=== PATIENT | male | born 1970 | race Caucasian/White ===

== ENCOUNTER 2016-06-30 06:17 | Inpatient (IN) | payer BC ==
[2016-06-22 12:24] VITALS: BMI 29.7
[~2016-06-30 06:17] MED LIST: DEXAMETHASONE SOD PHOSPHATE 10 MG/ML 1 ML VIAL IV ONE; HEPARIN SODIUM,PORCINE 5,000 UNIT/ML 1 ML VIAL SQ ONE; LACTATED RINGERS 1,000 ML IV SCH; LIDOCAINE 1% 20 ML VIAL (10MG/ML) FOR IV START INTRADERMA PRN; MIDAZOLAM 2 MG/2 ML VIAL IV PRN; ONDANSETRON 4 MG/2 ML VIAL IVP ONE; SCOPOLAMINE 1.5MG/72HR PATCH TRANSDERM ONE; ceFAZolin 2 GM in SODIUM CHLORIDE 0.9% 100 ML IVPB ONE
[2016-06-30 06:55] VITALS: RESP 16
[2016-06-30] MEDS ORDERED: LIDOCAINE 1% 20 ML VIAL (10MG/ML) FOR IV START INTRADERMA ONE (06:55)
[2016-06-30] MEDS ORDERED: fentaNYL (PF) 50 MCG/ML 2 ML AMP IV ONE (07:20)
--- NOTE | 2016-06-30 07:44 | P.GSHP ---
History of Present Illness H&P Date: 06/30/16 Chief Complaint: GERD, right upper quadrant pain This a 45-year-old male who presents today for laparoscopic Alex fundoplication and laparoscopic cholecystectomy. Patient has a recent HIDA scan which was abnormal ejection fraction consistent with biliary dyskinesia and chronic cholecystitis.The patient has had long-standing problems with reflux esophagitis. The patient underwent recent EGD is found have evidence of esophagitis. Patient has been well informed on the procedure of laparoscopic Alex fundoplication. The patient is aware the risk of the conversion to the open procedure, risk of injury to the stomach, liver and spleen. The patient is also a risk of recurrent GERD and dysphagia symptoms. The patient understands there is a postoperative diet of full liquids for 2 weeks after surgery. - Constitutional Constitutional: Reports as per HPI Past Medical History Past Medical History: GI Bleed Additional Past Medical History / Comment(s): HIATAL HERNIA History of Any Multi-Drug Resistant Organisms: None Reported Past Surgical History: Orthopedic Surgery Additional Past Surgical History / Comment(s): EGD-06/08/16. COLONOSCOPY. NOSE SX. REPAIR FX FINGERS Past Anesthesia/Blood Transfusion Reactions: Motion Sickness Past Psychological History: No Psychological Hx Reported Smoking Status: Never smoker Past Alcohol Use History: None Reported Past Drug Use History: None Reported - Past Family History Mother Family Medical History: No Reported History Medications and Allergies Home Medications Medication Instructions Recorded Confirmed Type Omeprazole 40 mg PO DAILY 06/06/16 06/30/16 History Ranitidine HCl [Zantac] 150 mg PO HS 06/30/16 06/30/16 History Allergies Allergy/AdvReac Type Severity Reaction Status Date / Time Penicillins AdvReac Rash/Hives Verified 06/22/16 12:20 Surgical - Exam Vital Signs Temp Pulse Resp BP Pulse Ox 98.1 F 62 16 151/91 98 06/30/16 06:40 06/30/16 06:40 06/30/16 06:40 06/30/16 06:40 06/30/16 06:40 - General well developed, no distress - Eyes PERRL - ENT normal pinna - Neck no masses - Respiratory normal expansion - Cardiovascular Rhythm: regular - Abdomen Mild right upper quadrant tenderness Abdomen: soft Assessment and Plan Plan: GERD. We'll perform laparoscopic Alex fundoplication. Chronic cholecystitis. We'll perform laparoscopic cholecystectomy
[2016-06-30] MEDS ORDERED: ROCURONIUM BROMIDE 10 MG/ML 10 ML VIAL IV ONE (07:49)
[2016-06-30] MEDS ORDERED: MIDAZOLAM 2 MG/2 ML VIAL ONE (07:49)
[2016-06-30] MEDS ORDERED: HYDROmorphone (PF) 1 MG/ML ONE (07:49)
[2016-06-30] MEDS ORDERED: LIDOCAINE 1% INJ 10MG/ML (20 ML MDV) ONE (07:49)
[2016-06-30] MEDS ORDERED: PROPOFOL 10 MG/ML 20 ML VIAL IV ONE (07:49)
[2016-06-30] MEDS ORDERED: NEOSTIGMINE 1 MG/ML 10 ML VIAL ONE (07:49)
[2016-06-30] MEDS ORDERED: fentaNYL (PF) 50 MCG/ML 2 ML AMP ONE (07:49)
[2016-06-30] MEDS ORDERED: SUCCINYLCHOLINE CHLORIDE VIAL 200 MG/10 ML VIAL IV ONE (07:49)
[2016-06-30] MEDS ORDERED: GLYCOPYRROLATE 0.2 MG/ML 2 ML VIAL ONE (07:49)
[2016-06-30] MEDS ORDERED: BUPIVACAIN-EPI 0.25%-1:200,000 30 ML VIAL SQ ONE (08:19)
[2016-06-30] MEDS ORDERED: LACTATED RINGERS 1,000 ML IV ONE ×2 (08:33→09:22)
[2016-06-30] MEDS ORDERED: ONDANSETRON 4 MG/2 ML VIAL IVP PRN (09:22)
[2016-06-30] MEDS ORDERED: NALOXONE 0.4 MG/ML 1 ML VIAL IV PRN (09:22)
[2016-06-30] MEDS ORDERED: KETOROLAC 30 MG/ML 1 ML VIAL IVP ONE ×2 (09:28)
--- NOTE | 2016-06-30 09:30 | P.OP ---
Date of Procedure: 06/30/16 Preoperative Diagnosis: Gerd Chronic cholecystitis Postoperative Diagnosis: GERD Chronic cholecystitis Procedure(s) Performed: Laparoscopic Alex fundoplication Laparoscopic cholecystectomy Anesthesia: LUIS Surgeon: Renato Marcos Estimated Blood Loss (ml): 5 Pathology: none sent (Gallbladder) Condition: stable Disposition: PACU Description of Procedure: The was placed on the operating table in the supine position. The patient received general anesthesia. And was placed in dorsal lithotomy position. The patient was prepped and draped in the usual sterile fashion. The skin incision sites were anesthetized with 1% local Xylocaine. The skin was incised in the left periumbilical area and then using a blade less 5 mm trocar under direct visualization panel cavity was entered. After adequate insufflation the laparoscope was then placed into the peritoneal cavity. Next a 5 mm trochars placed in the right epigastric position. Another 5 millimeter trocar the right lateral position. Another 5 millimeter trocar in the left lateral position a 5 mm trocar is placed in the left epigastric position. And then the initial 5 mm trocar was exchanged for a 10 mm trocar. The left lateral lobe liver was retracted. The hernia was seen. The crural defect was then dissected using the Harmonic scissors device. A 360 crural dissection was performed the esophagus stomach was reduced back into the peritoneal Cavity. The crural defect was then closed using 2-0 Ethibond suture. Next the fundus of the stomach was mobilized using the [place] scissors device. and then a 58-[place] bougie dilator was placed oropharynx passed into the esophagus and stomach the fundal plication wrap was then performed by grasping the fundus posteriorly and bringing it around the esophagus and stomach fundoplication was then performed using 2-0 Ethibond suture. Care was taken that the fundal location rested over top of the intra-abdominal esophagus. There was no injury seen to the stomach or esophagus. The dilator was then withdrawn. The abdomen was irrigated there is no bleeding seen. Next, the trochars were repositioned. The 8 mm trocar was positioned in the right epigastric position and then another 5 mm trocar was added to the right periumbilical position. The gallbladder was grasped in the fundus and infundibulum. Traction on the gallbladder was placed in the lateral and the cephalad positions. The triangle of [place] was visualized.. The cystic duct was bluntly dissected until the union of the cystic duct and common bile duct was seen. The cystic duct was then divided and sealed with the Harmonic scissors. A PDS Endoloop was then placed throughout the cystic duct stump. The cystic artery divided and sealed with the Harmonic scissors. The gallbladder was then removed from the liver bed using Harmonic scissors. The gallbladder was then extracted through the epigastric port site. Operative field was checked for any bleeding spots and Harmonic scissors was used to coagulate the liver bed. The abdomen was irrigated. The trocars were removed. The skin was closed using interrupted 3- 0 Vicryl suture. Dermabond dressing were applied. The patient tolerated the procedure well.
[2016-06-30] MEDS: HYDROmorphone 1 MG/ML 1 ML SYRINGE IVP PRN ×7 (09:33→17:32)
--- NOTE | 2016-06-30 12:03 | P.CONS ---
History of Present Illness - Reason for Consult Consult date: 06/30/16 Medical management Requesting physician: Renato Marcos - Chief Complaint Status post laparoscopic Alex fundoplication and cholecystectomy - History of Present Illness This is a 45-year-old male, patient of Dr. Patel. He has a known past medical history of GERD, hiatal hernia and hemorrhoids. Patient presents to the hospital for a laparoscopic Alex for medication and cholecystectomy. Patient has had suffered issues with GERD had recent EGD with evidence of esophagitis. Also had workup completed for the gallbladder with recent HIDA scan showing a EF of 22% with a biliary dyskinesia and chronic cholecystitis. Patient tolerated surgery well there were no complications. Estimated blood loss of 5 mL's. We're consulted for medical management. Patient is complaining of some left shoulder pain which is likely gas pain from the surgery. He denies any chest pain, shortness of breath, nausea or vomiting. He has not passed gas yet. Denies any difficulty urinating. Review of Systems Please refer to HPI otherwise unremarkable Past Medical History Past Medical History: GI Bleed Additional Past Medical History / Comment(s): HIATAL HERNIA, hemorrhoids History of Any Multi-Drug Resistant Organisms: None Reported Past Surgical History: Orthopedic Surgery Additional Past Surgical History / Comment(s): EGD-06/08/16. COLONOSCOPY. NOSE SX. REPAIR FX FINGERS Past Anesthesia/Blood Transfusion Reactions: Motion Sickness Past Psychological History: No Psychological Hx Reported Smoking Status: Never smoker Past Alcohol Use History: None Reported Past Drug Use History: None Reported - Past Family History Mother Family Medical History: No Reported History Medications and Allergies Home Medications Medication Instructions Recorded Confirmed Type Omeprazole 40 mg PO DAILY 06/06/16 06/30/16 History Ranitidine HCl [Zantac] 150 mg PO HS 06/30/16 06/30/16 History Allergies Allergy/AdvReac Type Severity Reaction Status Date / Time Penicillins AdvReac Rash/Hives Verified 06/22/16 12:20 Physical Exam Vitals: Vital Signs Temp Pulse Resp BP Pulse Ox 06/30/16 11:28 69 16 06/30/16 10:00 69 16 152/86 95 06/30/16 09:45 78 16 158/92 95 06/30/16 09:30 79 16 174/80 95 06/30/16 09:19 98 F 90 16 175/89 98 06/30/16 06:40 98.1 F 62 16 151/91 98 Intake and Output 06/29/16 06/30/16 06/30/16 22:59 06:59 14:59 Intake Total 400 1300 Output Total 5 Balance 400 1295 Intake: IV 400 1300 Output: Estimated Blood Loss 5 Other: Voiding Method Toilet Urinal Head normocephalic Neck supple Lungs clear to auscultation bilaterally no wheezing or crackles Heart regular rate and rhythm S1-S2, no rub or gallop Abdomen is soft tender incision sites. Hypoactive bowel sounds. Extremities no edema Neuro alert and orientated to 3 Assessment and Plan Plan: 1. GERD and chronic cholecystitis: Patient is postop day 0 status post laparoscopic Alex fundoplication and laparoscopic cholecystectomy. Patient is scheduled for esophagram later this afternoon. Pain is tolerable. 2. History of hemorrhoids: Stable no active bleeding 3. History of biliary dyskinesia with HIDA scan showing an ejection fraction of 22% with chronic cholecystitis now status post left Cholecystectomy 4. Check CBC and CMP 5. DVT prophylaxis subcu heparin and GI prophylaxis omeprazole 6. Add incentive spirometer for pulmonary prophylaxis Thank you for this consultation. We will continue to follow along with you Time with Patient: Greater than 30 (Greater than 50% of the total time spent in counseling and coordination of care.I performed an examination of the patient and discussed their management with the physician Head Of Digital. I have reviewed the Physician Head Of Digital's notes and agree with the documented findings and plan of care)
[2016-06-30 12:16] LABS: Basophils % (A) 0 %; CH 31.4; CHCM 34.1; Eosinophils % (A) 0 %; HCT 45.5 % (39.0-53.0); HDW 2.78; HGB 15.1 gm/dL (13.0-17.5); Luc # (Auto) 0.03; Luc % (Auto) 0; Lymphocytes # (A) 0.6 k/uL (1.0-4.8); Lymphocytes % (A) 5 %; MCH 30.7 pg (25.0-35.0); MCHC 33.2 g/dL (31.0-37.0); MCV 92.5 fL (80.0-100.0); Mean Platelet Volume 6.1; Monocytes # (A) 0.1 k/uL (0-1.0); Monocytes % (A) 1 %; Neutrophils # (A) 11.3 k/uL (1.3-7.7); Neutrophils % (A) 94 %; RBC 4.91 m/uL (4.30-5.90); RDW 12.8 % (11.5-15.5); WBC 12.1 k/uL (3.8-10.6); WBC (Perox) 12.42
[2016-06-30 12:29] LABS: ALT 70 U/L (21-72); AST 43 U/L (17-59); Alkaline Phosphatase 67 U/L (38-126); Anion Gap 14 mmol/L; Blood Urea Nitrogen 14 mg/dL (9-20); Carbon Dioxide 24 mmol/L (22-30); Chloride 105 mmol/L (98-107); Glucose 117 mg/dL (74-99); Non-African American GFR(MDRD) >60 (>60 ml/min/1.73 sqM); Potassium 4.1 mmol/L (3.5-5.1); Sodium 143 mmol/L (137-145); Total Bilirubin 0.5 mg/dL (0.2-1.3); Total Protein 6.9 g/dL (6.3-8.2)
--- NOTE | 2016-06-30 13:25 | FL ---
EXAMINATION TYPE: FL UGI w esophagus DATE OF EXAM: 06/30/2016 1:11 PM COMPARISON: NONE HISTORY: Postop Niesen TECHNIQUE: A single contrast UGI study is performed. FINDINGS: Master Dyer image of the abdomen shows no gross abnormality. There is moderate delay at the level of the GE junction. Approximately one third of contrast passed i nto the stomach. No evidence of extravasation. Small amount of free intraperitoneal air noted. IMPRESSION: 1. Moderate delay at the level of the GE junction.
[2016-06-30] MEDS: HEPARIN SODIUM,PORCINE 5,000 UNIT/ML 1 ML VIAL SQ SCH (20:25)
[2016-06-30] MEDS: HYDROcodone/APAP 5-325MG 1 EACH TAB PO PRN (20:25)
[2016-07-01] MEDS: HYDROcodone/APAP 5-325MG 1 EACH TAB PO PRN ×2 (01:53→07:43)
[2016-07-01 06:48] LABS: Basophils % (A) 0 %; CH 31.5; CHCM 34.3; Eosinophils % (A) 0 %; HCT 41.3 % (39.0-53.0); HDW 2.77; HGB 13.8 gm/dL (13.0-17.5); Luc # (Auto) 0.15; Luc % (Auto) 1; Lymphocytes # (A) 1.8 k/uL (1.0-4.8); Lymphocytes % (A) 15 %; MCH 30.8 pg (25.0-35.0); MCHC 33.4 g/dL (31.0-37.0); MCV 92.3 fL (80.0-100.0); Mean Platelet Volume 7.4; Monocytes # (A) 0.8 k/uL (0-1.0); Monocytes % (A) 7 %; Neutrophils # (A) 9.1 k/uL (1.3-7.7); Neutrophils % (A) 77 %; RBC 4.48 m/uL (4.30-5.90); WBC 11.9 k/uL (3.8-10.6); WBC (Perox) 11.99
[2016-07-01 07:08] LABS: ALT 58 U/L (21-72); AST 45 U/L (17-59); Alkaline Phosphatase 57 U/L (38-126); Anion Gap 8 mmol/L; Blood Urea Nitrogen 12 mg/dL (9-20); Calcium 9.2 mg/dL (8.4-10.2); Carbon Dioxide 30 mmol/L (22-30); Chloride 103 mmol/L (98-107); Glucose 103 mg/dL (74-99); Non-African American GFR(MDRD) >60 (>60 ml/min/1.73 sqM); Potassium 4.7 mmol/L (3.5-5.1); Sodium 141 mmol/L (137-145); Total Bilirubin 0.9 mg/dL (0.2-1.3); Total Protein 6.2 g/dL (6.3-8.2)
[2016-07-01 07:30] VITALS: BP 126/84; PULSE 60; TEMP 97
[2016-07-01] MEDS ORDERED: PANTOPRAZOLE 40 MG TABLET PO SCH (07:30)
[2016-07-01] MEDS: HEPARIN SODIUM,PORCINE 5,000 UNIT/ML 1 ML VIAL SQ SCH (08:32)
[2016-07-01] MEDS: HYDROmorphone 1 MG/ML 1 ML SYRINGE IVP PRN (11:28)
[2016-07-01] MEDS ORDERED: METOCLOPRAMIDE 5 MG/ML 2 ML VIAL IVP STA (11:32)
--- NOTE | 2016-07-01 11:43 | P.PN ---
Subjective Patient is status post Alex complication and lap scopic cholecystectomy postop day #1. Patient complaining of some gas pains in the stomach and left shoulder pain. Has not passed any gas or had bowel movement yet. He has been up and ambulating. Denies any nausea or vomiting. He is able to belch small amounts. Denies any chest pain or shortness of breath. Denies any difficulty urinating. Objective - Vital Signs Vital signs: Vital Signs Temp 97.0 F L 07/01/16 07:00 Pulse 60 07/01/16 08:00 Resp 16 07/01/16 08:00 BP 126/84 07/01/16 07:00 Pulse Ox 98 07/01/16 07:00 Intake & Output 06/30/16 07/01/16 07/01/16 18:59 06:59 18:59 Intake Total 1800 1375 Output Total 5 Balance 1795 1375 Weight 102.058 kg Intake: IV 1300 1375 Lactated Ringers 1,000 ml 1375 @ 125 mls/hr IV .Q8H ONE Rx#:[id number] Intake, IV Titration 500 Amount Lactated Ringers 1,000 ml 400 @ 125 mls/hr IV .Q8H ONE Rx#:[id number] ceFAZolin 2 gm In Sodium 100 Chloride 0.9% 100 ml @ 100 mls/hr IVPB ONCE ONE Rx#:[id number] Output: Estimated Blood Loss 5 Other: Voiding Method Toilet Toilet Toilet Urinal Urinal Urinal # Voids 3 2 - Exam Head normocephalic Neck supple Lungs clear to auscultation bilaterally no wheezing or crackles Heart regular rate and rhythm S1-S2, no rub or gallop Abdomen is soft nontender nondistended positive bowel sounds no hepatosplenomegaly. Incision site clean dry and intact Extremities no edema Neuro alert and orientated to 3 - Labs CBC & Chem 7: 07/01/16 06:30 07/01/16 06:30 Labs: Abnormal Lab Results - Last 24 Hours (Table) 06/30/16 06/30/16 07/01/16 Range/Units 11:57 11:57 06:30 WBC 12.1 H 11.9 H (3.8-10.6) k/uL Neutrophils # 11.3 H 9.1 H (1.3-7.7) k/uL Lymphocytes # 0.6 L (1.0-4.8) k/uL Glucose 117 H (74-99) mg/dL Total Protein (6.3-8.2) g/dL 07/01/16 Range/Units 06:30 WBC (3.8-10.6) k/uL Neutrophils # (1.3-7.7) k/uL Lymphocytes # (1.0-4.8) k/uL Glucose 103 H (74-99) mg/dL Total Protein 6.2 L (6.3-8.2) g/dL Assessment and Plan Plan: 1. GERD and chronic cholecystitis: Patient is postop day 1 status post laparoscopic Alex fundoplication and laparoscopic cholecystectomy. Patient still not passing gas. Upper GI that showed moderate delay at the GE junction. We'll await further surgical recommendations. 2. History of hemorrhoids: Stable no active bleeding 3. History of biliary dyskinesia with HIDA scan showing an ejection fraction of 22% with chronic cholecystitis now status post left Cholecystectomy 4. Check CBC and CMP 5. DVT prophylaxis subcu heparin and GI prophylaxis omeprazole 6. Add incentive spirometer for pulmonary prophylaxis 7. Leukocytosis likely reactive to surgery. White count trending down to 11.9
--- NOTE | 2016-07-01 14:15 | P.DS ---
Providers Date of admission: 06/30/16 06:17 Expected date of discharge: 07/01/16 Attending physician: Renato Marcos Consults: 06/30/16 09:22 Consult Physician Routine Consulting Provider: Rica Barker Consult Reason/Comments: Medical management Do you want consulting provider notified?: Yes Primary care physician: Valerie Patel [place] Hospital Course: Patient is a 45-year-old male with medical history for GERD, biliary dyskinesia and chronic cholecystitis. Patient presented to the hospital for elective laparoscopic Alex fundoplication and laparoscopic cholecystectomy. Patient tolerated procedure well. Postoperative barium swallow x-ray with evidence of moderate delay at the level of the GE junction. No evidence of dysphagia. Patient had an uneventful postop recovery. Patient able to tolerate full liquid diet. Incisional pain controlled. Urinating without difficulty. Passing flatus without bowel movement. From a surgical standpoint , patient was deemed stable for discharge to home with follow-up in the outpatient setting. Discharge diagnoses: 1. GERD status post endoscopic Alex fundoplication. 2. Biliary dyskinesia with chronic cholecystitis status post laparoscopic cholecystectomy The above impression and plan have been discussed and directed by Dr. Marcos. Magui SARKAR acting as scribe for Dr. Marcos. Pertinent Studies: Upper GI/barium swallow x-ray Procedures: Laparoscopic cholecystectomy; laparoscopic Alex fundoplication. Patient Condition at Discharge: Good Plan - Discharge Summary New Discharge Prescriptions: HYDROcodone/APAP 7.5-325MG [[place] 7.5-325] 1 tab PO Q6HR PRN #28 tab PRN Reason: Pain Discharge Medication List HYDROcodone/APAP 7.5-325MG [[place] 7.5-325] 1 tab PO Q6HR PRN #28 tab 06/30/16 [ Rx] Follow up Appointment(s)/Referral(s): Valerie Patel DO [Primary Care Provider] - 07/26/16 2:30 pm (PT can call the office to try and schedule an earlier appt at the [facility]. ) Renato Marcos MD [STAFF PHYSICIAN] - 07/14/16 2:20 pm Patient Instructions/Handouts: *Surgery [facility] - ([facility]) Laparoscopic Cholecystectomy, *[facility] - ([facility]) Lap Alex Fundiplication Post- Op Instructions, *Surgery [facility] - Scopalamine Patch Instructions Activity/Diet/Wound Care/Special Instructions: No heavy lifting, pushing, or pulling items greater than 10 pounds. Full liquid diet for two weeks. No carbonated beverages or straws. Shower daily, no soaking in bath tubs, pools, or hot tubs. No driving while taking pain medication. Notify surgeon with any signs or symptoms of infection, increased pain, or not tolerating diet. Discharge Disposition: HOME SELF-CARE
== END 2016-07-01 13:46 | disposition home or self-care (01) | DRG 328 ==
LOC: 2ORWHC 06:17 → 3SUR 09:19
PROVIDERS: ADMIT Surgery; ATTEND Surgery
PROC: 0DV44ZZ Restriction of Esophagogastric Junction, Percutaneous Endoscopic Approach (ICD-10-PCS; principal; 2016-06-30 07:40)
PROC: 0FT44ZZ Resection of Gallbladder, Percutaneous Endoscopic Approach (ICD-10-PCS; 2016-06-30 07:40)
DX: K21.0 Gastro-esophageal reflux disease with esophagitis (principal); K81.1 Chronic cholecystitis; D72.829 Elevated white blood cell count, unspecified; K64.9 Unspecified hemorrhoids; K82.8 Other specified diseases of gallbladder; R14.1 Gas pain; M25.512 Pain in left shoulder; K44.9 Diaphragmatic hernia without obstruction or gangrene; Z88.0 Allergy status to penicillin; Z87.81 Personal history of (healed) traumatic fracture; Z87.19 Personal history of other diseases of the digestive system; Z79.899 Other long term (current) drug therapy
CPT/HCPCS: 74240; 80053; 85025; 88304; 93005

== ENCOUNTER → 2018-09-11 | Outpatient (CLI) | payer OTHER ==
--- NOTE | 2018-09-11 21:38 | PN ---
PROGRESS NOTE A 47-year-old male patient was diagnosed having obstructive sleep apnea an AHI of 9.5 worse during REM with an AHI of 22. The patient is coming in for a compliancy check. On today's evaluation, the patient reports improvement in sleep quality in general. His is also happy the patient is not snoring. Apneas have completely subsided. He is currently on an APAP minimum of 5, maximum of 10 and he is less sleepy, [place] score is down to 12. Based on the compliance data, the patient has been achieving more than 4 hours approximately 28 out of the past 30 days. He has been averaging around 7.5 hours of CPAP use per night. His average APAP pressures of 8.7, his leak factor 5 L/minute. AHI is down to 2.6, and his average CPAP pressure of the CPAP machine is around 8.7. He is utilizing an an N20 AirFit large size mask. The patient has no specific complaints. He is exploring other alternatives in terms of his mask interface and I offered him the [employer] [place] medium-sized nose mask. He has no complaints otherwise for now. He is concentrating on some weight loss. REVIEW OF SYSTEMS: 14-point review of system was done. Positive findings are mentioned in history of present illness. No recent weight gain or weight loss. No hypersomnia. No history of motor vehicle accident because of falling asleep. No chest pain. No swelling in the lower extremities. No palpitations. No headache. No shortness of breath. No chest pain. No respiratory difficulties. No cough or sputum production. No grinding of the teeth. No leg kicks. No seizure activity. PHYSICAL EXAMINATION: BP is 131/78, pulse 64, respirations 16, temperature 98.0, temperature 98.2, weight is 231. GENERAL APPEARANCE: Calm, comfortable. Head is atraumatic, normocephalic. NECK: Supple. No JVD. No goiter or neck masses. LUNGS: Clear to auscultation. HEART: Sounds regular rate and rhythm. Normal S1, S2. No S3, no murmurs. ABDOMEN: Soft, nontender. No organomegaly. EXTREMITIES: No edema. No cyanosis or clubbing. NEUROLOGIC: Alert and oriented x3. No focal neurological deficits. PSYCHIATRIC: Negative for anxiety or depression. Skin is negative for any wounds or ulcerations or cellulitis. IMPRESSION: 1. Obstructive sleep apnea, mild in severity. AHI of 9.5, worse during REM with an AHI of 22, currently on APAP, minimum of 5, maximum of 10. 2. Hypersomnia, improved. 3. Sleep fragmentation improved. PLAN: 1. Continue APAP at same level of pressure. 2. Offer this patient a Dream Wear medium-size nose mask as an alternative for his N20 mask. 3. Encourage weight loss. 4. If treatment is successful compliance data was checked and the patient will see me back in a year's time in follow up, earlier if needed. For now, no need for any change on the CPAP unit or pressure setting. MMODL / IJN: [id number] /
== END ==
LOC: SLEEP 15:59
PROVIDERS: ATTEND Internal Medicine Critical Care Medicine
DX: G47.33 Obstructive sleep apnea (adult) (pediatric) (principal); Z99.89 Dependence on other enabling machines and devices

== ENCOUNTER → 2021-06-24 | Outpatient (CLI) | payer OTHER ==
[2021-06-24 17:23] LABS: LDL Cholesterol,Calculated 177.8 mg/dL (0.0-131.0)
[2021-06-24 17:31] LABS: ALT 21 U/L (10-49); AST 16 U/L (14-35); African American GFR (CKD) 70.5 (60.0-200.0); Albumin 4.7 g/dL (3.8-4.9); Albumin/Globulin Ratio 2.22 (1.60-3.17); Alkaline Phosphatase 78 U/L (41-126); BUN/Creat Ratio 12.37 Ratio (12.00-20.00); Blood Urea Nitrogen 16.7 mg/dL (9.0-27.0); Calcium 9.6 mg/dL (8.7-10.3); Carbon Dioxide 26.8 mmol/L (20.0-27.5); Chloride 100 mmol/L (96-109); Globulin 2.1 g/dL (1.6-3.3); Glucose 105 mg/dL (70-110); Non-African American GFR(CKD) 60.8 (60.0-200.0); Potassium 4.1 mmol/L (3.5-5.5); Sodium 141 mmol/L (135-145); Total Protein 6.8 g/dL (6.2-8.2)
== END | disposition home or self-care (01) ==
LOC: LABWHC1 09:08
PROVIDERS: ATTEND Internal Medicine Interventional Cardiology
DX: E78.2 Mixed hyperlipidemia (principal)
CPT/HCPCS: 36415; 80053; 80061

== ENCOUNTER → 2021-07-20 | Outpatient (CLI) | payer SELFPAY ==
[2021-07-20 15:00] LABS: ALT 34 U/L (10-49); AST 34 U/L (14-35); Chol/HDL Ratio 2.79 Ratio; LDL Cholesterol,Calculated 60.6 mg/dL (0.0-131.0)
== END | disposition home or self-care (01) ==
LOC: LABWHC1 08:17
PROVIDERS: ATTEND Nurse Practitioner Adult Health
DX: E78.2 Mixed hyperlipidemia (principal)
CPT/HCPCS: 36415; 80061; 84450; 84460

== ENCOUNTER 2021-08-04 13:44 | Emergency (ER) | payer OTHER ==
[2021-08-04 13:58] VITALS: TEMP 98.9
[2021-08-04] MEDS ORDERED: SODIUM CHLORIDE 0.9% 1,000 ML IV STA (14:35)
[2021-08-04] MEDS ORDERED: ONDANSETRON 4 MG/2 ML VIAL IVP STA (14:48)
[2021-08-04] MEDS ORDERED: KETOROLAC 30 MG/ML 1 ML VIAL IVP STA (14:48)
--- NOTE | 2021-08-04 14:55 | ED ---
General Adult HPI - General Chief complaint: Abdominal Pain Stated complaint: kidney stones Time Seen by Provider: 08/04/21 14:35 Source: patient Mode of arrival: wheelchair Limitations: no limitations - History of Present Illness Initial comments: Dictation was produced using [employer] dictation software. please excuse any grammatical, word or spelling errors. Chief Complaint: 50-year-old male presents emergency department for left-sided flank pain History of Present Illness: 50-year-old male who has past medical history of kidney stones. States he woke this morning feeling fine when approximately several minutes after waking up he started to have left-sided flank pain. States it radiates down to his left groin. Patient had a kidney stone several years ago feels exactly the same. He noticed that his urine was a little red over the last 12 hours. Since being in the emergency department symptoms have felt a little better. States his pain is colicky. Fevers. Has been having nausea. The ROS documented in this emergency department record has been reviewed and confirmed by me. Those systems with pertinent positive or negative responses have been documented in the HPI. All other systems are other negative and/or noncontributory. PHYSICAL EXAM: General Impression: Alert and oriented x3, not in acute distress HEENT: Normocephalic atraumatic, extra-ocular movements intact, pupils equal and reactive to light bilaterally, mucous membranes moist. Cardiovascular: Heart regular rate and rhythm Chest: Able to complete full sentences, no retractions, no tachypnea Abdomen: abdomen soft, non-tender, non-distended, no organomegaly Musculoskeletal: Pulses present and equal in all extremities, no peripheral edema Motor: no focal deficits noted Neurological: CN II-XII grossly intact, no focal motor or sensory deficits noted Skin: Intact with no visualized rashes Psych: Normal affect and mood ED course: 50-year-old male presents to the emergency department for symptoms of kidney stones. Patient has a kidney stone in the past. States his symptoms are comparable. Vital Signs upon arrival are within acceptable limits. Laboratory, patient given 1 L normal saline bolus, Toradol and Zofran. Laboratory evaluation obtained. CBC, coag panel, but has within acceptable limits. There is 108 red blood cells. Ultrasound of the abdomen and bladder shows no discrete abnormality seen. There is no hydronephrosis. Patient reevaluated at bedside at 4:30 PM found with stable medical condition. Patient is agreeable to discharge. States that it symptoms are much improved though still slightly symptomatic. Clinical presentation consistent with nonobstructing nephrolithiasis. Last vomit primary care doctor. - Related Data Home Medications Medication Instructions Recorded Confirmed Ibuprofen [Motrin] 600 mg PO DAILY PRN 03/26/17 08/04/21 Acetaminophen Tab [Tylenol Tab] 1,500 mg PO DAILY PRN 08/04/21 08/04/21 Atorvastatin [Lipitor] 40 mg PO DAILY 08/04/21 08/04/21 Metoprolol Succinate (ER) [Toprol 25 mg PO DAILY 08/04/21 08/04/21 Xl] hydroCHLOROthiazide 25 mg PO DAILY 08/04/21 08/04/21 Previous Rx's Medication Instructions Recorded HYDROcodone/APAP 5-325MG [[place] 1 tab PO Q6HR PRN 3 Days #12 tab 08/04/21 5-325] Allergies Allergy/AdvReac Type Severity Reaction Status Date / Time Penicillins Allergy Rash/Hives Verified 08/04/21 15:54 Review of Systems ROS Statement: Those systems with pertinent positive or pertinent negative responses have been documented in the HPI. ROS Other: All systems not noted in ROS Statement are negative. Past Medical History Past Medical History: GI Bleed Additional Past Medical History / Comment(s): HIATAL HERNIA, hemorrhoids, kidney stones History of Any Multi-Drug Resistant Organisms: None Reported Past Surgical History: Cholecystectomy, Hernia Repair, Orthopedic Surgery Additional Past Surgical History / Comment(s): EGD-06/08/16. COLONOSCOPY. NOSE SX. REPAIR FX FINGERS Past Anesthesia/Blood Transfusion Reactions: Motion Sickness Past Psychological History: Anxiety Smoking Status: Never smoker Past Alcohol Use History: None Reported Past Drug Use History: None Reported - Past Family History Mother Family Medical History: No Reported History General Exam Limitations: no limitations Course Vital Signs 08/04/21 08/04/21 13:56 15:45 Temperature 98.9 F Pulse Rate 69 70 Respiratory 20 18 Rate Blood Pressure 148/92 O2 Sat by Pulse 100 99 Oximetry Medical Decision Making - Lab Data Result diagrams: 08/04/21 14:35 08/04/21 14:35 Lab Results 08/04/21 08/04/21 08/04/21 Range/Units 14:35 14:35 14:35 WBC 11.5 H (3.8-10.6) k/uL RBC 4.53 (4.30-5.90) m/uL Hgb 14.8 (13.0-17.5) gm/dL Hct 42.2 (39.0-53.0) % MCV 93.0 (80.0-100.0) fL MCH 32.7 (25.0-35.0) pg MCHC 35.2 (31.0-37.0) g/dL RDW 12.6 (11.5-15.5) % Plt Count 194 (150-450) k/uL MPV 6.6 Neutrophils % 86 % Lymphocytes % 9 % Monocytes % 4 % Eosinophils % 1 % Basophils % 0 % Neutrophils # 10.0 H (1.3-7.7) k/uL Lymphocytes # 1.0 (1.0-4.8) k/uL Monocytes # 0.4 (0-1.0) k/uL Eosinophils # 0.1 (0-0.7) k/uL Basophils # 0.0 (0-0.2) k/uL PT 11.3 (9.0-12.0) sec INR 1.0 (<1.2) APTT 24.8 (22.0-30.0) sec Sodium 133 L (137-145) mmol/L Potassium 3.5 (3.5-5.1) mmol/L Chloride 98 (98-107) mmol/L Carbon Dioxide 23 (22-30) mmol/L Anion Gap 12 mmol/L BUN 13 (9-20) mg/dL Creatinine 1.52 H (0.66-1.25) mg/dL Est GFR (CKD-EPI)AfAm 61 (>60 ml/min/1.73 sqM) Est GFR (CKD-EPI)NonAf 53 (>60 ml/min/1.73 sqM) Glucose 138 H (74-99) mg/dL Calcium 9.1 (8.4-10.2) mg/dL Magnesium 2.0 (1.6-2.3) mg/dL Lipase 68 (23-300) U/L Urine Color Urine Appearance (Clear) Urine pH (5.0-8.0) Ur Specific [place] (1.001-1.035) Urine Protein (Negative) Urine Glucose (UA) (Negative) Urine Ketones (Negative) Urine Blood (Negative) Urine Nitrite (Negative) Urine Bilirubin (Negative) Urine Urobilinogen (<2.0) mg/dL Ur Leukocyte Esterase (Negative) Urine RBC (0-5) /hpf Urine WBC (0-5) /hpf Ur Squamous Epith Cells (0-4) /hpf Urine Bacteria (None) /hpf Urine Mucus (None) /hpf 08/04/21 Range/Units 15:47 WBC (3.8-10.6) k/uL RBC (4.30-5.90) m/uL Hgb (13.0-17.5) gm/dL Hct (39.0-53.0) % MCV (80.0-100.0) fL MCH (25.0-35.0) pg MCHC (31.0-37.0) g/dL RDW (11.5-15.5) % Plt Count (150-450) k/uL MPV Neutrophils % % Lymphocytes % % Monocytes % % Eosinophils % % Basophils % % Neutrophils # (1.3-7.7) k/uL Lymphocytes # (1.0-4.8) k/uL Monocytes # (0-1.0) k/uL Eosinophils # (0-0.7) k/uL Basophils # (0-0.2) k/uL PT (9.0-12.0) sec INR (<1.2) APTT (22.0-30.0) sec Sodium (137-145) mmol/L Potassium (3.5-5.1) mmol/L Chloride (98-107) mmol/L Carbon Dioxide (22-30) mmol/L Anion Gap mmol/L BUN (9-20) mg/dL Creatinine (0.66-1.25) mg/dL Est GFR (CKD-EPI)AfAm (>60 ml/min/1.73 sqM) Est GFR (CKD-EPI)NonAf (>60 ml/min/1.73 sqM) Glucose (74-99) mg/dL Calcium (8.4-10.2) mg/dL Magnesium (1.6-2.3) mg/dL Lipase (23-300) U/L Urine Color Yellow Urine Appearance Clear (Clear) Urine pH 6.0 (5.0-8.0) Ur Specific [place] 1.012 (1.001-1.035) Urine Protein Negative (Negative) Urine Glucose (UA) Negative (Negative) Urine Ketones Negative (Negative) Urine Blood Large H (Negative) Urine Nitrite Negative (Negative) Urine Bilirubin Negative (Negative) Urine Urobilinogen <2.0 (<2.0) mg/dL Ur Leukocyte Esterase Negative (Negative) Urine RBC 108 H (0-5) /hpf Urine WBC 1 (0-5) /hpf Ur Squamous Epith Cells <1 (0-4) /hpf Urine Bacteria Rare H (None) /hpf Urine Mucus Occasional H (None) /hpf Disposition Clinical Impression: Kidney stone Disposition: HOME SELF-CARE Condition: Good Instructions (If sedation given, give patient instructions): Kidney Stones (ED) Prescriptions: HYDROcodone/APAP 5-325MG [[place] 5-325] 1 tab PO Q6HR PRN 3 Days #12 tab PRN Reason: Severe Pain Is patient prescribed a controlled substance at d/c from ED?: Yes If prescribed controlled substance>3 days was MAPS reviewed?: Prescribed <3 Days Referrals: Valerie Patel DO [Primary Care Provider] - 1-2 days
[2021-08-04 14:56] LABS: Basophils % (A) 0 %; Eosinophils # (A) 0.1 k/uL (0-0.7); Eosinophils % (A) 1 %; HCT 42.2 % (39.0-53.0); HGB 14.8 gm/dL (13.0-17.5); Lymphocytes % (A) 9 %; MCH 32.7 pg (25.0-35.0); MCHC 35.2 g/dL (31.0-37.0); Mean Platelet Volume 6.6; Monocytes # (A) 0.4 k/uL (0-1.0); Monocytes % (A) 4 %; Neutrophils % (A) 86 %; Platelet Count 194 k/uL (150-450); RBC 4.53 m/uL (4.30-5.90); RDW 12.6 % (11.5-15.5); WBC 11.5 k/uL (3.8-10.6)
[2021-08-04 15:07] LABS: Partial Thromboplastin Time 24.8 sec (22.0-30.0); Prothrombin Time 11.3 sec (9.0-12.0)
[2021-08-04 15:08] LABS: Calcium 9.1 mg/dL (8.4-10.2); Potassium 3.5 mmol/L (3.5-5.1)
--- NOTE | 2021-08-04 15:30 | US ---
EXAMINATION TYPE: US kidneys/renal and bladder DATE OF EXAM: 08/04/2021 COMPARISON: CT 2017 CLINICAL HISTORY: flank pain. Left flank pain EXAM MEASUREMENTS: Right Kidney: 11.2 x 4.5 x 4.8 cm Left Kidney: 11.2 x 5.3 x 5.1 cm Right Kidney: No hydronephrosis or masses seen Left Kidney: No hydronephrosis or masses seen Bladder: wnl Bilateral Jets seen: Yes There is no evidence for hydronephrosis at this point in time. No nephrolithiasis is seen. No gerson s are identified. The urinary bladder is anechoic. Bilateral ureteral jets are seen. IMPRESSION: No discrete abnormality seen.
[2021-08-04] MEDS ORDERED: MORPHINE SULFATE 4 MG/ML SYRINGE IVP STA (15:43)
[2021-08-04 16:10] LABS: Appearance,Urine Clear (Clear); Bacteria,Urine Rare /hpf; Bilirubin,Urine Negative (Negative); Blood,Urine Large (Negative); Color,Urine Yellow; Glucose,Urine (UA) Negative (Negative); Ketones,Urine Negative (Negative); Leukocyte Esterase,Urine Negative (Negative); Mucus,Urine Occasional /hpf; Nitrite,Urine Negative (Negative); Protein,Urine Negative (Negative); RBC,Urine 108 /hpf (0-5); Specific Gravity,Urine 1.012 (1.001-1.035); Squamous Epithelial Cell,Urine <1 /hpf (0-4); Urobilinogen,Urine <2.0 mg/dL (<2.0); WBC,Urine 1 /hpf (0-5)
[2021-08-04 16:18] VITALS: RESP 18
[2021-08-04 17:08] VITALS: BP 168/95; PULSE 57
== END 2021-08-04 17:09 | disposition home or self-care (01) ==
LOC: EC 13:44
DX: N20.0 Calculus of kidney (principal); F41.9 Anxiety disorder, unspecified; Z88.0 Allergy status to penicillin; Z90.49 Acquired absence of other specified parts of digestive tract
CPT/HCPCS: 99284; 96374; 96375 ×2; 36415; 80048; 83690; 83735; 85025; 85610; 85730; 81001; 76770; J2270; J2405; J1885

== ENCOUNTER → 2021-09-08 | Outpatient (CLI) | payer OTHER ==
--- NOTE | 2021-09-09 07:36 | CT ---
EXAMINATION TYPE: CT abdomen pelvis wo con DATE OF EXAM: 09/08/2021 COMPARISON: CT dated 03/26/2017 HISTORY: h/o renal stones and hematuria CT DLP: 837.7 mGycm Automated exposure control for dose reduction was used. TECHNIQUE: Helical acquisition of images was performed from the lung bases through the pelvis. FINDINGS: LUNG BASES: No significant abnormality is appreciated. LIVER/GB: Previous cholecystectomy. 7 mm left hepatic lobe hypodensity likely representing a hepatic cyst, with a smaller segment 8 hypodensity likely another cyst, not well appreciated previously. Furt her elective ultrasound assessment can be considered. No other definite hepatic focal lesion identifi ed by this nonenhanced CT scan. PANCREAS: No significant abnormality is seen. SPLEEN: No significant abnormality is seen. ADRENALS: No significant abnormality is seen. KIDNEYS: 2 mm calculus is seen at the lower pole of the left kidney with 2 mm calculus at the midpole of the right kidney. 3 mm nonobstructing calculus is seen at the left uterovesical junction. No sign ificant hydroureter or hydronephrosis bilaterally. Questionable subtle cyst at the midpole of right k idney, suboptimally assessed. No other definite radiodense urinary calculi. No other definite renal l esion by this nonenhanced CT scan. FREE AIR: No free air is visualized RETROPERITONEAL ADENOPATHY: None visualized REPRODUCTIVE ORGANS: No significant abnormality is seen URINARY BLADDER: No other significant abnormality PELVIC ADENOPATHY: None visualized. OSSEOUS STRUCTURES: No aggressive bone lesion. BOWEL: Previous gastric fundoplication. Unremarkable remainder of the stomach, duodenum and small bijal wel. No gross colonic abnormality. OTHER: No sizable ascites. IMPRESSION: Few bilateral nonobstructing tiny renal calculi. 3 mm nonobstructing calculus at the left uterovesica l junction as described above. Questionable subtle right mid pole renal cyst, suboptimally assessed a nd possibly artifactual. No cyst or other lesion identified in July 2021 ultrasound. Other incide ntal findings as described above.
== END | disposition home or self-care (01) ==
LOC: RADCTMAIN 16:35
PROVIDERS: ATTEND Family Medicine
DX: N20.0 Calculus of kidney (principal); K20.0 Eosinophilic esophagitis
CPT/HCPCS: 74176

== ENCOUNTER → 2022-06-01 | Outpatient (CLI) | payer OTHER ==
--- NOTE | 2022-06-01 22:12 | CT ---
EXAMINATION TYPE: CT chest wo con DATE OF EXAM: 06/01/2022 COMPARISON: NONE HISTORY: family hx of heart disease. CT DLP: 433.6 mGycm. Automated Exposure Control for Dose Reduction was Utilized. TECHNIQUE: CT scan of the thorax is performed without IV contrast. FINDINGS: LUNGS: The lungs are grossly clear, there is no concerning parenchymal mass or nodule identified. T here is no pleural effusion or pneumothorax seen. The tracheobronchial tree is patent. MEDIASTINUM: Lack of IV contrast is noted to limit evaluation for mediastinal and especially hilar ad enopathy. There are no definitive greater than 1 cm hilar or mediastinal lymph nodes. Subcentimeter l ymph nodes throughout the mediastinum are seen. No cardiomegaly or pericardial effusion is seen. OTHER: Surgical changes at the level of the diaphragmatic hiatus likely from prior Ad fundoplicat ion surgery are present. Surgical clips from cholecystectomy are noted. IMPRESSION: No significant acute or chronic pulmonary process.
== END | disposition home or self-care (01) ==
LOC: RADCTMAIN 13:04
PROVIDERS: ATTEND Family Medicine
DX: Z82.49 Family history of ischemic heart disease and other diseases of the circulatory system (principal)
CPT/HCPCS: 71250

== ENCOUNTER → 2022-06-15 | Outpatient (CLI) | payer OTHER ==
--- NOTE | 2022-06-15 20:19 | MR ---
EXAMINATION TYPE: MR angio head wo/neck wo/w con DATE OF EXAM: 06/15/2022 7:46 AM CLINICAL INDICATION:Male, 51 years old with history of R42 dizziness, I25.10 ashd, G44.209 tension he adache; COMPARISON: None Technical: MRA brain: 3-D [id number] Axial with MIP and 3-D reconstruction Performed on a separate workstati on. IV Contrast: 10 cc Gadavist MRA neck: Multiplanar, multi-sequence imaging as well as [id number] and phase was performed extra cranial vasculature of the neck. 3-D reformatted images and maximum intensity projection reformatted images were submitted for evaluation, these are performed on a separate workstation. Findings: Vertebral arteries: The vertebral arteries are patent. The vertebral arteries are codominant. Basilar artery: The basilar artery is intact. The basilar artery bifurcation is normal. Internal Carotid arteries: The cervical, petrous, cavernous and supraclinoid segments are normal. NEVIN: Patent with no evidence of aneurysm. ACOM: Present without evidence of aneurysm. MCA: Patent with no evidence of aneurysm. JEWEL HOLE ROUGH OPENER: Patent with no evidence of aneurysm. PCOM: Hypoplastic bilaterally. RIGHT CAROTID SYSTEM: The common carotid artery is patent. The carotid bifurcations that she no evide nce for hemodynamically significant stenosis. The internal carotid arteries patent. LEFT CAROTID SYSTEM: The common carotid artery is patent. The carotid bifurcations that she no evide nce for hemodynamically significant stenosis. The internal carotid arteries patent. The origins of the great vessels and vertebral arteries appear unremarkable. IMPRESSION: 1. No evidence of intracranial aneurysm or significant stenosis. 2. No evidence of significant stenosis at the carotid bifurcations. The carotid and vertebral arteri es are patent
== END | disposition home or self-care (01) ==
LOC: RADMRIMAIN 06:01
PROVIDERS: ATTEND Family Medicine
DX: I25.10 Atherosclerotic heart disease of native coronary artery without angina pectoris (principal); G44.209 Tension-type headache, unspecified, not intractable; R42 Dizziness and giddiness
CPT/HCPCS: 70544; 70549; A9585

== ENCOUNTER → 2022-10-04 | Outpatient (CLI) | payer OTHER ==
--- NOTE | 2022-10-04 11:40 | CT ---
EXAMINATION TYPE: CT sinus wo con DATE OF EXAM: 10/04/2022 COMPARISON: None HISTORY: chronic sinusitis, ear infection left worse than right CT DLP: 652 mGycm CONTRAST: 0 mL of Isovue 300 The paranasal sinuses are examined in the axial plane at 2 mm thick sections. Reconstructed images i n the coronal plane were obtained. The right maxillary sinus is opacified. The ethmoid air cells are clear. The sphenoid sinuses are c lear. The frontal sinuses are clear. The septum is evaluated. There is septal deviation to the right. Right septal spur is present. Ostiomeatal units are not well visualized. The right ostiomeatal unit appears to be patent. What may be the left ostiomeatal unit may be patent to the opacified right maxillary sinus. Has there been sae or uncinectomy on the right side? Bilateral fara bullosa are present. IMPRESSIONS: 1. Opacified right maxillary sinus. 2. Remaining paranasal sinuses appear clear. 3. Right septal deviation and right septal spurring. 4. Right ostiomeatal unit is not well delineated. Left ostiomeatal unit is patent.
== END | disposition home or self-care (01) ==
LOC: RADCTMAIN 07:53
PROVIDERS: ATTEND Otolaryngology
DX: J32.1 Chronic frontal sinusitis (principal); J34.2 Deviated nasal septum
CPT/HCPCS: 70486

== ENCOUNTER → 2023-03-30 | Outpatient (CLI) | payer BC ==
[2023-03-30 16:53] LABS: ALT 28 U/L (10-49); AST 18 U/L (14-35); Albumin 4.5 d/dL (3.8-4.9); Albumin/Globulin Ratio 2.25 Ratio (1.60-3.17); Alkaline Phosphatase 73 U/L (41-126); BUN/Creat Ratio 9.31 Ratio (12.00-20.00); Blood Urea Nitrogen 12.1 mg/dL (9.0-27.0); Calcium 9.2 mg/dL (8.7-10.3); Carbon Dioxide 28.3 mmol/L (21.6-31.8); Chloride 104 mmol/L (96-109); Glucose 101 mg/dL (70-110); LDL Cholesterol,Calculated 85.4 mg/dL (0.0-131.0); Potassium 3.9 mmol/L (3.5-5.5); Sodium 143 mmol/L (135-145); Total Bilirubin 0.4 mg/dL (0.3-1.2); Total Protein 6.5 d/dL (6.2-8.2)
== END | disposition home or self-care (01) ==
LOC: LABWHC1 08:09
PROVIDERS: ATTEND Internal Medicine Interventional Cardiology
DX: I10 Essential (primary) hypertension (principal); E78.2 Mixed hyperlipidemia
CPT/HCPCS: 36415; 80053; 80061

== ENCOUNTER → 2023-06-07 | Outpatient (CLI) | payer BC ==
--- NOTE | 2023-06-07 14:03 | MR ---
EXAMINATION TYPE: MR brain and iac wo/w con DATE OF EXAM: 06/07/2023 COMPARISON: None HISTORY: Left side tinnitus, pressure. Hx surgery October 2022. CONTRAST: Performed utilizing 10 mL intravenous Gadavist gadolinium contrast. TECHNIQUE: Multiplanar, multiecho imaging on a 3.0 [place] magnet is performed through the brain. Atte ntion is paid to the internal auditory canals with thin section imaging. Postcontrast imaging is per formed through the internal auditory canals. FINDINGS:Craniovertebral junction is normal. The pituitary is normal. Optic chiasm is visualized is normal. Diffusion-weighted imaging is performed. No suspicious hyperintensity is present to suggest an acute intracranial infarct or acute ischemic area. Signal within the brain is unremarkable.. Thin section imaging is performed through the internal auditory canals and cerebellar pontine angles. No cerebellar pontine angle masses are evident. The internal auditory canals appear normal without expansion or erosion. Postcontrast imaging was performed. No suspicious enhancement is evident within the internal audito ry canals or the included portions of the brain. Paranasal sinuses and mastoid air cells are clear. No abnormal enhancement is evident IMPRESSION: 1. Normal internal auditory canals. 2. No acute intracranial process.
== END | disposition home or self-care (01) ==
LOC: RADMRIMAIN 07:44
PROVIDERS: ATTEND Otolaryngology
DX: H93.12 Tinnitus, left ear (principal)
CPT/HCPCS: 70553; A9585

== ENCOUNTER → 2023-12-25 | Outpatient (CLI) | payer BC ==
[2023-12-25 10:51] LABS: HCT 44.4 % (39.6-50.0); HGB 15.2 g/dL (13.0-17.0); MCHC 34.2 g/dL (32.0-37.0); MCV 93.5 FL (80.0-97.0); Mean Platelet Volume 9.8 FL (9.5-12.2); NRBC Per 100 WBC 0 X 10*3/uL (0.00-0.01); Platelet Count 193 X 10*3/uL (140-440); RBC 4.75 X 10*6/uL (4.40-5.60); RDW 12.4 % (11.5-14.5)
[2023-12-25 11:00] LABS: Chol/HDL Ratio 2.64 Ratio; LDL Cholesterol,Calculated 69.1 mg/dL (0.0-131.0); VLDL Calculation 17.78 mg/dL (5.00-40.00)
[2023-12-25 11:01] LABS: ALT 20 U/L (10-49); AST 17 U/L (14-35); Chloride 103 mmol/L (96-109); Glucose 106 mg/dL (70-110); Sodium 141 mmol/L (135-145)
== END | disposition home or self-care (01) ==
LOC: LABWHC1 07:25
PROVIDERS: ATTEND Internal Medicine Interventional Cardiology
DX: F41.1 Generalized anxiety disorder (principal); E78.2 Mixed hyperlipidemia; I10 Essential (primary) hypertension; R68.82 Decreased libido
CPT/HCPCS: 36415; 80048; 80061; 83036; 84402; 84403; 84443; 84450; 84460; 85027

== ENCOUNTER → 2024-02-13 | Outpatient (CLI) | payer BC ==
--- NOTE | 2024-02-13 10:06 | MR ---
EXAMINATION TYPE: MR cervical spine wo con DATE OF EXAM: 02/13/2024 COMPARISON: None HISTORY: Pain TECHNIQUE: Multiplanar, multisequence images of the cervical spine were acquired without contrast. C2-C3: No disc bulge/herniation or protrusion. No Canal stenosis. Foramina are patent bilaterally. Mild facet arthropathy. C3-C4: Uncovertebral joint hypertrophy greater on the right with mild right foraminal encroachment. N o disc bulge/herniation or protrusion. No Canal stenosis. Mild facet arthropathy. C4-C5: Uncovertebral joint hypertrophy and facet arthropathy with moderate right foraminal encroachme nt. No Canal stenosis. C5-C6: Facet arthropathy and uncovertebral joint hypertrophy with mild bilateral foraminal encroachme nt. No disc herniation or canal stenosis. C6-C7: No evidence for degenerative disc disease. No disc bulge/herniation or protrusion. No Canal stenosis. Foramina are patent bilaterally. C7-T1: No evidence for degenerative disc disease. No disc bulge/herniation or protrusion. No Canal stenosis. Foramina are patent bilaterally. Cervical segments are intact. There is normal alignment. Cervical spinal cord is of normal signal. Craniovertebral junction relationships are within normal limits. Mild disc desiccation at all level s. IMPRESSION: 1. Multilevel degenerative disc disease with multilevel uncovertebral joint hypertrophy and facet art hropathy result in multilevel foraminal encroachment as discussed above. 2. There is no disc herniation or canal stenosis.
== END | disposition home or self-care (01) ==
LOC: RADMRIMAIN 06:01
PROVIDERS: ATTEND Family Medicine
DX: M54.12 Radiculopathy, cervical region
CPT/HCPCS: 72141

== ENCOUNTER → 2024-04-26 | Outpatient (CLI) | payer BC ==
--- NOTE | 2024-04-26 10:09 | CT ---
EXAMINATION TYPE: CT abdomen pelvis wo con CT DLP: 1036 mGycm, Automated exposure control for dose reduction was used. DATE OF EXAM: 04/26/2024 10:00 AM COMPARISON: CT abdomen pelvis 09/08/2021, CT renal stone 03/26/2017 CLINICAL INDICATION:Male, 53 years old with history of N30.90 CYSTITIS R30.0 DYSURIA; PAINFUL URINATI ON AND FREQUENCY, PELVIC/GROIN PAIN. ORAL CONTRAST ONLY TECHNIQUE: Standard CT of the abdomen and pelvis following the administration of oral contrast. Exa mination is limited due to lack of intravenous contrast. Coronal and sagittal reformats were performe d. FINDINGS: LOWER CHEST: Unremarkable ABDOMEN LIVER: Stable left hepatic lobe subcentimeter likely cyst. GALLBLADDER AND BILE DUCTS: The gallbladder is surgically absent. No biliary ductal dilatation. PANCREAS: Unremarkable noncontrast appearance SPLEEN: Unremarkable noncontrast appearance ADRENAL GLANDS: Unremarkable noncontrast appearance. KIDNEYS AND URETERS: No evidence of hydronephrosis . There are 2 nonobstructive punctate left renal c alculi with largest measuring up to 4 mm. No definitive ureteral calculus. PELVIS BLADDER: Unremarkable. No wall thickening or surrounding inflammatory changes identified. REPRODUCTIVE: Unremarkable. ABDOMEN & PELVIS STOMACH AND BOWEL: Postsurgical changes at the GE junction from gastric fundoplication. Enteric contr ast reaches the ileocecal junction. Redundant sigmoid colon. Distal colonic diverticulosis without ev idence for acute diverticulitis. No focal bowel wall thickening or surrounding inflammatory changes. No evidence of bowel obstruction. PERITONEUM: No evidence of pneumoperitoneum or free fluid. VASCULATURE: No evidence of aortic aneurysm. Right-sided pelvic phlebolith. MUSCULOSKELETAL: No acute osseous abnormalities LYMPH NODES: No gross evidence for lymphadenopathy. SOFT TISSUE/ABDOMINAL WALL: Unremarkable IMPRESSION: 1. No evidence for obstructive uropathy. There are 2 nonobstructive punctate left renal calculi. 2. Colonic diverticulosis without evidence for acute diverticulitis. [facility], , 04/26/2024 10:06 AM
== END | disposition home or self-care (01) ==
LOC: RADCTMAIN 08:00
PROVIDERS: ATTEND Family Medicine
DX: N20.0 Calculus of kidney (principal); N30.90 Cystitis, unspecified without hematuria; R30.0 Dysuria; K57.30 Diverticulosis of large intestine without perforation or abscess without bleeding
CPT/HCPCS: 74176

== ENCOUNTER → 2024-08-27 | Outpatient (CLI) | payer BC ==
[2024-08-27 15:10] LABS: ALT 28 U/L (10-49); AST 24 U/L (14-35); Chol/HDL Ratio 3.97 Ratio; LDL Cholesterol,Calculated 125.4 mg/dL (0.0-131.0)
== END | disposition home or self-care (01) ==
LOC: LABWHC1 08:40
PROVIDERS: ATTEND Internal Medicine Interventional Cardiology
DX: E78.2 Mixed hyperlipidemia (principal)
CPT/HCPCS: 36415; 80061; 84450; 84460